=== PATIENT | female | born 1995 | race Caucasian/White ===

== ENCOUNTER 2017-06-17 00:05 | Inpatient (IN) | payer BC, OTHER ==
[2017-06-17] MEDS ORDERED: Acetaminophen 325 MG Tab PO PRN (00:19)
[2017-06-17] MEDS ORDERED: fentaNYL 100 MCG/2 ML SDV IVPUSH PRN (00:19)
[2017-06-17] MEDS ORDERED: Lactated Ringers 500 ML IV ONE (00:19)
[2017-06-17] MEDS ORDERED: Lidocaine 1% 30 ML SDV INJECT PRN (00:19)
[2017-06-17] MEDS ORDERED: Ondansetron 4 MG/2 ML SDV IV PRN (00:19)
[2017-06-17] MEDS ORDERED: Carboprost Tromethamine 250 MCG/1 ML Amp IM PRN (00:19)
[2017-06-17] MEDS ORDERED: Misoprostol 400 MCG (4 X 100 MCG TAB) RECTAL PRN (00:19)
[2017-06-17] MEDS ORDERED: Methylergonovine 0.2 MG/1 ML Amp IM PRN (00:19)
[2017-06-17] MEDS ORDERED: Sodium Chloride 0.9% 10 ML Syringe FLUSH PRN ×3 (00:19→17:13)
[2017-06-17] MEDS ORDERED: Nalbuphine 10 MG/1 ML Vial IVPUSH PRN (00:19)
[2017-06-17] MEDS ORDERED: Penicillin G Potassium 5 MILLUNITS in Sodium Chloride 0.9% 100 ML IV ONE ×2 (00:19→01:00)
[2017-06-17] MEDS ORDERED: Misoprostol 25 MCG (1/4 of 100 MCG) Tab VAG PRN (00:23)
[2017-06-17] MEDS ORDERED: Penicillin G Potassium 3 MILLUNITS in Sodium Chloride 0.9% 100 ML IV SCH (05:00)
[2017-06-17] MEDS: Lactated Ringers 1,000 ML IV SCH ×3 (06:30→12:45)
[2017-06-17] MEDS ORDERED: fentaNYL 100 MCG/2 ML SDV ITHECAL ONE ×2 (08:00→13:00)
[2017-06-17] MEDS ORDERED: fentaNYL 100 MCG/2 ML SDV ONE ×2 (08:27→12:50)
--- NOTE | 2017-06-17 09:42 | PCM.LDHP ---
L&D History of Present Illness - General Date of Service: 06/17/17 Admit Problem/Dx: Patient Status Order with Admit Dx/Problem 06/17/17 00:19 Patient Status [ADT] Routine Admission Diagnosis/Problem Admission Diagnosis/Problem - History of Present Illness Introduction:: 22-year-old at 41 weeks 0 days gestation presents for induction of labor. She has been feeling well. Baby has been active. No vaginal bleeding or leaking of fluid. No headaches or vision changes. She has been having some intermittent [place] contractions but nothing regular. No comp medications with . 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 Endocrine/Metabolic History: Reports: Obesity/BMI 30+ Hematologic History: Reports: Anemia - Past Surgical History HEENT Surgical History: Reports: Adenoidectomy, Tonsillectomy Social & Family History - Family History Family Medical History: Noncontributory - Tobacco Use Smoking Status *Q: Never Smoker Second Hand Smoke Exposure: No - Caffeine Use Caffeine Use: Reports: None - Recreational Drug Use Recreational Drug Use: No - Living Situation & Occupation Living situation: Reports: with Significant Other Occupation: Employed H&P Review of Systems - Review of Systems: Review Of Systems: See Below General: Reports: No Symptoms HEENT: Reports: No Symptoms Pulmonary: Reports: No Symptoms Cardiovascular: Reports: No Symptoms Gastrointestinal: Reports: No Symptoms Genitourinary: Reports: No Symptoms Musculoskeletal: Reports: No Symptoms L&D Exam - Exam Exam: See Below - Vital Signs Vital Signs: Last Vital Signs Temp 35.8 C 06/17/17 07:00 Pulse 96 06/17/17 07:00 Resp 20 06/17/17 07:00 BP 117/65 06/17/17 07:00 Pulse Ox 98 06/17/17 07:00 Weight: 88.451 kg - OB Specific Contraction Duration (sec): 40-100 Contraction Frequency (min): 2-5 Contraction Intensity: Moderate to Strong - Romero Score Romero Score Cervix Position: Posterior Romero Score Consistency: Medium Romero Score Dilation: 1-2 cm Romero Score Infant's Station: -3 - Exam General: Alert, Oriented HEENT: Mucosa Moist & Joseph, Posterior Pharynx Clear Lungs: Clear to Auscultation, Normal Respiratory Effort Cardiovascular: Regular Rate, Regular Rhythm. No: Systolic Murmur, Diastolic Murmur Extremities: Pedal Edema (trace bilaterally) Skin: Warm, Dry, Intact - Patient Data Lab Results Last 24 hrs: Laboratory Results - last 24 hr 06/17/17 Range/Units 00:35 WBC 10.4 H (5.0-10.0) 10^3/uL RBC 4.21 (4.2-5.4) 10^6/uL Hgb 12.0 (12.0-16.0) g/dL Hct 35.8 L (37.0-47.0) % MCV 85.0 (80-100) fL MCH 28.5 (27.0-34.0) pg MCHC 33.5 (33.0-35.0) g/dL Plt Count 303 (150-450) 10^3/uL Result Diagrams: 06/17/17 00:35 - Problem List (1) Post-dates SNOMED Code(s): 37841110 ICD Code: O48.0 - POST-TERM Status: Acute Current Visit: Yes (2) Rh negative status during SNOMED Code(s): 429478533, 164953242 ICD Code: O09.899 - SUPERVISION OF OTHER HIGH RISK PREGNANCIES, UNSP TRIMESTER Status: Acute Current Visit: Yes Problem List Initiated/Reviewed/Updated: Yes Orders Last 24hrs: Active Orders 24 hr Category Date Time Status Patient Status [ADT] Routine ADT 06/17/17 00:19 Active Communication Order [RC] ASDIRECTED Care 06/17/17 00:19 Active Communication Order [RC] ASDIRECTED Care 06/17/17 00:23 Active Heart Tones [RC] PER UNIT ROUTINE Care 06/17/17 00:19 Active Notify Provider Vital Signs OB [RC] ASDIRECTED Care 06/17/17 00:19 Active Notify Provider [RC] PRN Care 06/17/17 00:19 Active Notify Provider [RC] PRN Care 06/17/17 00:23 Active Notify Provider [RC] PRN Care 06/17/17 00:23 Active Notify Provider [RC] STAT Care 06/17/17 00:23 Active Peripheral IV Care [RC] 08,20 Care 06/17/17 00:24 Active Pump Management, Intrathecal [RC] ASDIRECTED Care 06/17/17 00:19 Active Up ad Shreya [RC] ASDIRECTED Care 06/17/17 00:19 Active Vaginal Exam [RC] PRN Care 06/17/17 00:23 Active Vital Signs [RC] PER UNIT ROUTINE Care 06/17/17 00:19 Active Clear Liquid Diet [DIET] Diet 06/17/17 Breakfast Active Acetaminophen [Tylenol] Med 06/17/17 00:19 Active 650 mg PO Q4H PRN Carboprost Tromethamine [Hemabate DS] Med 06/17/17 00:19 Active 250 mcg IM ASDIRECTED PRN Lactated Ringers [Ringers, Lactated] 1,000 ml Med 06/17/17 00:30 Active IV ASDIRECTED Lidocaine 1% [Xylocaine-MPF 1%] Med 06/17/17 00:19 Active 10 ml INJECT ASDIRECTED PRN Methylergonovine [Methergine] Med 06/17/17 00:19 Active 0.2 mg IM ASDIRECTED PRN Misoprostol [Cytotec] Med 06/17/17 00:23 Active 25 mcg VAG Q4H PRN Misoprostol [Cytotec] Med 06/17/17 00:19 Active 800 mcg RECTAL ASDIRECTED PRN Nalbuphine [Nubain] Med 06/17/17 00:19 Active 10 mg IVPUSH Q3H PRN Ondansetron [Zofran] Med 06/17/17 00:19 Active 4 mg IV Q4H PRN Oxytocin/Normal Saline [Pitocin in NS 30 UNIT/500 ML] Med 06/17/17 00:30 Active 30 unit in 500 ml IV TITRATE Sodium Chloride 0.9% [Saline Flush] Med 06/17/17 00:19 Active 10 ml FLUSH ASDIRECTED PRN Sodium Chloride 0.9% [Saline Flush] Med 06/17/17 00:23 Active 10 ml FLUSH ASDIRECTED PRN fentaNYL [Sublimaze] Med 06/17/17 00:19 Active 50 mcg IVPUSH Q1H PRN Peripheral IV Insertion Adult [OM.PC] Urgent Oth 06/17/17 00:23 Ordered Saline Lock Insert [OM.PC] Routine Oth 06/17/17 00:19 Ordered Resuscitation Status Routine Resus Stat 06/17/17 00:19 Ordered Medication Orders Acetaminophen (Tylenol) 650 mg PO Q4H PRN PRN Reason: Pain (Mild 1-3) and fever Carboprost Tromethamine (Hemabate Ds) 250 mcg IM ASDIRECTED PRN PRN Reason: HEMORRHAGE Fentanyl (Sublimaze) 50 mcg IVPUSH Q1H PRN PRN Reason: Pain (moderate 4-6) Last Admin: 06/17/17 07:03 Dose: 50 mcg Lactated Ringer's (Ringers, Lactated) 1,000 mls @ 125 mls/hr IV ASDIRECTED GEORGE Last Admin: 06/17/17 06:30 Dose: 125 mls/hr Oxytocin/Sodium Chloride (Pitocin In Ns 30 Unit/500 Ml) 30 unit in 500 mls @ 2 mls/hr IV TITRATE GEORGE; 2 MUNITS/MIN PRN Reason: Protocol Lidocaine HCl (Xylocaine-Mpf 1%) 10 ml INJECT ASDIRECTED PRN PRN Reason: Perineal Repair Methylergonovine Maleate (Methergine) 0.2 mg IM ASDIRECTED PRN PRN Reason: Hemorrhage Misoprostol (Cytotec) 800 mcg RECTAL ASDIRECTED PRN PRN Reason: Hemorrhage Misoprostol (Cytotec) 25 mcg VAG Q4H PRN PRN Reason: cervical ripening Stop: 06/18/17 04:24 Last Admin: 06/17/17 01:03 Dose: 25 mcg Nalbuphine HCl (Nubain) 10 mg IVPUSH Q3H PRN PRN Reason: Pain (moderate 4-6) Ondansetron HCl (Zofran) 4 mg IV Q4H PRN PRN Reason: Nausea/Vomiting Sodium Chloride (Saline Flush) 10 ml FLUSH ASDIRECTED PRN PRN Reason: Keep Vein Open Sodium Chloride (Saline Flush) 10 ml FLUSH ASDIRECTED PRN PRN Reason: Keep Vein Open Assessment/Plan Comment:: patient admitted around midnight. Cytotec placed about an hour later. At 5 AM, patient was reassessed. She was mike every 2-3 minutes so another dose of Cytotec was not placed. Patient was evaluated around 8 AM and was found to be 5 cm with bulging bag. However, head was ballotable so AROM was not performed at this time. Patient does desire an intrathecal. 1. Continue routine intrapartum cares. 2. Patient may receive intrathecal when desired. 3. AROM when able. 4. Anticipate vaginal delivery. Expectant management. david Tran
[2017-06-17] MEDS: Oxytocin/Normal Saline 30 UNIT/500 ML BAG IV SCH ×2 (09:47→17:38)
--- NOTE | 2017-06-17 17:12 | PCM.DEL ---
L & D Note - General Info Date of Service: 06/17/17 Mother's Due Date: 06/10/17 - Delivery Note Labor: Augmented by ARM, Augmented by Oxytocin Cervical Ripening Method: Misoprostil Delivery Outcome: Livebirth Infant Delivery Method: Spontaneous Vaginal Delivery Presentation: Right Occiput Anterior (GILBERTO) Nuchal Cord: None Anesthesia Type: Local, Intrathecal Anesthetic: Lidocaine (Xylocaine) 0.5% Plain Local Anesthetic Volume: 4cc Amniotic Fluid Description: Meconium Stained (initially clear, meconium noted about an hour prior to delivery) Episiotomy Type: None Laceration: 2nd Degree, Vaginal Suture type: Vicryl Suture size: 3-0 Placenta: Intact (small amount of membranes removed after placenta), Spontaneous Cord: 3 Vessels Estimated Blood Loss: 275 Resuscitation Needed: Yes Ola: Bulb Syringe, Stimulated, Warmed, [place] Used Provider: Mindi Benoit Score 1 min: 7 Score 5 min: 8 Delivery Comments (Free Text/Narrative):: 22-year-old now presented to labor and delivery for induction of labor due to postdates. She received 1 dose of Cytotec for cervical ripening. After that, labor was spontaneous. Pitocin was started around 9 AM to augment labor. AROM was performed around 12:30 PM. Patient received intrathecal 2 for pain relief.patient reached complete dilation around 1500. She pushed for approximately 1 hour and 40 minutes then delivered a viable female with Apgars of 7 and 8 at one and 5 minutes respectively. Measurements were pending at the time of this dictation. Placenta delivered spontaneously a short time later. A small piece of membranes was noted after delivery of placenta this was gently teased out using sterile gauze. The piece of membrane approximately 6 inches long was removed. Bleeding was more brisk than desired so Pitocin was started at a bolus rate. The lower uterine segment was explored and several medium sized clots were removed. After that, the uterus became firm. Bleeding was noted to be appropriate. A three-vessel cord was noted. A right vaginal tear was repaired using 3-0 Vicryl. The patient tolerated the procedure well, and there were no immediate complications. Mindi Benoit MD Induction Criteria - Romero Score Romero Score Dilation: 1-2 cm Romero Score Effacement: 60-70% Romero Score Infant's Station: -2 Romero Score Consistency: Soft Romero Score Cervix Position: Posterior Romero Score Total: 6 Romero Score Presenting Part: Reports: Cephalic - Induction Gestational Age >/= 39 wks: Yes Medical Indication: post dates Estimated Pelvis: Reports: Adequate Reassuring Monitoring Strip: Yes Absence of Tachy Systole: Yes - Augmentation Estimated Pelvis: Reports: Adequate Weight Estimated:: Reports: AGA Reassuring monitoring strip: Yes Absence of tachy systole: Yes - Patient Data Vitals - most recent: Last Vital Signs Temp 36.9 C 06/17/17 13:35 Pulse 77 06/17/17 14:15 Resp 18 06/17/17 14:15 BP 116/56 L 06/17/17 14:15 Pulse Ox 97 06/17/17 14:15 Weight - most recent: 88.451 kg Lab Results last 24 hrs: Laboratory Results - last 24 hr 06/17/17 Range/Units 00:35 WBC 10.4 H (5.0-10.0) 10^3/uL RBC 4.21 (4.2-5.4) 10^6/uL Hgb 12.0 (12.0-16.0) g/dL Hct 35.8 L (37.0-47.0) % MCV 85.0 (80-100) fL MCH 28.5 (27.0-34.0) pg MCHC 33.5 (33.0-35.0) g/dL Plt Count 303 (150-450) 10^3/uL Med Orders - Current: Current Medications Acetaminophen (Tylenol) 650 mg PO Q4H PRN PRN Reason: Pain (Mild 1-3) and fever Carboprost Tromethamine (Hemabate Ds) 250 mcg IM ASDIRECTED PRN PRN Reason: HEMORRHAGE Fentanyl (Sublimaze) 50 mcg IVPUSH Q1H PRN PRN Reason: Pain (moderate 4-6) Last Admin: 06/17/17 07:03 Dose: 50 mcg Lactated Ringer's (Ringers, Lactated) 1,000 mls @ 125 mls/hr IV ASDIRECTED GEORGE Last Admin: 06/17/17 12:45 Dose: 125 mls/hr Oxytocin/Sodium Chloride (Pitocin In Ns 30 Unit/500 Ml) 30 unit in 500 mls @ 2 mls/hr IV TITRATE GEORGE; 2 MUNITS/MIN PRN Reason: Protocol Last Titration: 06/17/17 14:28 Dose: 14 munits/min, 14 mls/hr Lidocaine HCl (Xylocaine-Mpf 1%) 10 ml INJECT ASDIRECTED PRN PRN Reason: Perineal Repair Last Admin: 06/17/17 17:00 Dose: 10 ml Methylergonovine Maleate (Methergine) 0.2 mg IM ASDIRECTED PRN PRN Reason: Hemorrhage Misoprostol (Cytotec) 800 mcg RECTAL ASDIRECTED PRN PRN Reason: Hemorrhage Misoprostol (Cytotec) 25 mcg VAG Q4H PRN PRN Reason: cervical ripening Stop: 06/18/17 04:24 Last Admin: 06/17/17 01:03 Dose: 25 mcg Nalbuphine HCl (Nubain) 10 mg IVPUSH Q3H PRN PRN Reason: Pain (moderate 4-6) Ondansetron HCl (Zofran) 4 mg IV Q4H PRN PRN Reason: Nausea/Vomiting Last Admin: 06/17/17 12:42 Dose: 4 mg Sodium Chloride (Saline Flush) 10 ml FLUSH ASDIRECTED PRN PRN Reason: Keep Vein Open Sodium Chloride (Saline Flush) 10 ml FLUSH ASDIRECTED PRN PRN Reason: Keep Vein Open Discontinued Medications Fentanyl (Sublimaze) Confirm Administered Dose 100 mcg .ROUTE .STK-MED ONE Stop: 06/17/17 08:28 Fentanyl (Sublimaze) Confirm Administered Dose 100 mcg .ROUTE .STK-MED ONE Stop: 06/17/17 12:51 Lactated Ringer's (Ringers, Lactated) 500 mls @ 999 mls/hr IV .BOLUS ONE Stop: 06/17/17 00:49 Penicillin G Potassium 5 (millunits/ Sodium Chloride) 100 mls @ 200 mls/hr IV ONETIME ONE Stop: 06/17/17 00:48 Last Admin: 06/17/17 02:33 Dose: Not Given Penicillin G Potassium 3 (millunits/ Sodium Chloride) 100 mls @ 200 mls/hr IV Q4H GEORGE Penicillin G Potassium 5 (millunits/ Sodium Chloride) 100 mls @ 200 mls/hr IV ONETIME ONE Stop: 06/17/17 01:29 Last Admin: 06/17/17 02:33 Dose: Not Given Sufentanil Citrate (Sufenta) Confirm Administered Dose 50 mcg .ROUTE .STK-MED ONE Stop: 06/17/17 08:29 Sufentanil Citrate (Sufenta) Confirm Administered Dose 50 mcg .ROUTE .STK-MED ONE Stop: 06/17/17 12:51 - Problem List & Annotations (1) Post-dates SNOMED Code(s): 22876023 Code(s): O48.0 - POST-TERM Status: Acute Current Visit: Yes (2) Rh negative status during SNOMED Code(s): 426267119, 154956294 Code(s): O09.899 - SUPERVISION OF OTHER HIGH RISK PREGNANCIES, UNSP TRIMESTER Status: Acute Current Visit: Yes (3) (normal spontaneous vaginal delivery) SNOMED Code(s): 76827099 Code(s): O80 - ENCOUNTER FOR FULL-TERM UNCOMPLICATED DELIVERY Status: Acute Current Visit: Yes (4) Obstetric vaginal laceration, delivered, current hospitalization SNOMED Code(s): 734573833 Code(s): O71.4 - OBSTETRIC HIGH VAGINAL LACERATION ALONE Status: Acute Current Visit: Yes - Problem List Review Problem List Initiated/Reviewed/Updated: Yes - My Orders Last 24 Hours: My Active Orders 06/17/17 00:19 Patient Status [ADT] Routine Communication Order [RC] ASDIRECTED Heart Tones [RC] PER UNIT ROUTINE Notify Provider Vital Signs OB [RC] ASDIRECTED Notify Provider [RC] PRN Pump Management, Intrathecal [RC] ASDIRECTED Up ad Shreya [RC] ASDIRECTED Vital Signs [RC] PER UNIT ROUTINE Acetaminophen [Tylenol] 650 mg PO Q4H PRN Carboprost Tromethamine [Hemabate DS] 250 mcg IM ASDIRECTED PRN Lidocaine 1% [Xylocaine-MPF 1%] 10 ml INJECT ASDIRECTED PRN Methylergonovine [Methergine] 0.2 mg IM ASDIRECTED PRN Misoprostol [Cytotec] 800 mcg RECTAL ASDIRECTED PRN Nalbuphine [Nubain] 10 mg IVPUSH Q3H PRN Ondansetron [Zofran] 4 mg IV Q4H PRN Sodium Chloride 0.9% [Saline Flush] 10 ml FLUSH ASDIRECTED PRN fentaNYL [Sublimaze] 50 mcg IVPUSH Q1H PRN Saline Lock Insert [OM.PC] Routine Resuscitation Status Routine 06/17/17 00:23 Communication Order [RC] ASDIRECTED Notify Provider [RC] PRN Notify Provider [RC] PRN Notify Provider [RC] STAT Vaginal Exam [RC] PRN Misoprostol [Cytotec] 25 mcg VAG Q4H PRN Sodium Chloride 0.9% [Saline Flush] 10 ml FLUSH ASDIRECTED PRN Peripheral IV Insertion Adult [OM.PC] Urgent 06/17/17 00:24 Peripheral IV Care [RC] 08,06/17/17 00:30 Lactated Ringers [Ringers, Lactated] 1,000 ml IV ASDIRECTED Oxytocin/Normal Saline [Pitocin in NS 30 UNIT/500 ML] 30 unit in 500 ml IV TITRATE 06/17/17 Breakfast Clear Liquid Diet [DIET] - Assessment Assessment:: 22-year-old now status post normal spontaneous vaginal delivery at 41w0d - Plan Plan:: 1. Initiate routine cares. 2.Will give second dose of Pitocin to facilitate uterine tone 3. plans to breast-feed. 4. Anticipate discharge 06/19/17. Mindi Benoit MD
[2017-06-17] MEDS ORDERED: Oxytocin 10 Units/1 ML SDV IM PRN (17:13)
[2017-06-17] MEDS ORDERED: Methylergonovine 0.2 MG Tab PO PRN (17:13)
[2017-06-17] MEDS ORDERED: Benzocaine/Menthol 20%-0.5% Spray 56 GM Canister TOP PRN (17:13)
[2017-06-17] MEDS: Ibuprofen 800 MG Tab PO PRN (19:14)
[2017-06-17] MEDS: Docusate Sodium 100 MG Cap PO PRN (22:09)
[2017-06-18] MEDS: Ibuprofen 800 MG Tab PO PRN ×3 (04:41→21:01)
[2017-06-18] MEDS: Docusate Sodium 100 MG Cap PO PRN ×2 (08:35→21:00)
[2017-06-18] MEDS: Prenatal Multivitamin with Calcium/Folic Acid/Iron Tab PO SCH (08:35)
[2017-06-18] MEDS: Simethicone 80 MG Tab.Chew PO PRN (08:36)
--- NOTE | 2017-06-18 13:05 | PCM.PNPP ---
- General Info Date of Service: 06/18/17 Subjective Update: 22-year-old now day #1 status post normal spontaneous vaginal delivery at 41 weeks gestation. Patient is doing well. She notes her vaginal bleeding has started to decrease. Pain is well-controlled. She is tolerating a general diet. She is voiding and has passed gas. She has not had a bowel movement. She is having some difficulty with breast-feeding but will be meeting with today. No fevers or chills. No dizziness or lightheaded. No concerns per patient or per nursing. Functional Status: Reports: Pain Controlled, Tolerating Diet, Ambulating, Urinating. Denies: New Symptoms - Review of Systems General: Reports: No Symptoms HEENT: Reports: No Symptoms Pulmonary: Reports: No Symptoms Cardiovascular: Reports: No Symptoms Gastrointestinal: Reports: No Symptoms Genitourinary: Reports: No Symptoms Musculoskeletal: Reports: No Symptoms Skin: Reports: No Symptoms Neurological: Reports: No Symptoms Psychiatric: Reports: No Symptoms - General Info Date of Service: 06/18/17 - Patient Data Vital Signs - most recent: Last Vital Signs Temp 36.4 C 06/18/17 08:00 Pulse 82 06/18/17 08:00 Resp 18 06/18/17 08:00 BP 99/54 L 06/18/17 08:00 Pulse Ox 100 06/18/17 08:00 Weight - most recent: 88.451 kg I&O - last 24 hours: Intake & Output 06/17/17 06/18/17 06/18/17 22:59 06:59 14:59 Intake Total 2500 Balance 2500 Med Orders - Current: Current Medications Acetaminophen (Tylenol) 650 mg PO Q4H PRN PRN Reason: Pain (Mild 1-3) and fever Benzocaine/Menthol (Dermoplast Pain Relief [place]) 0 gm TOP Q4H PRN PRN Reason: Perineal comfort measures Last Admin: 06/17/17 19:15 Dose: 1 spray Carboprost Tromethamine (Hemabate Ds) 250 mcg IM ASDIRECTED PRN PRN Reason: HEMORRHAGE Docusate Sodium (Colace) 100 mg PO BID PRN PRN Reason: Constipation Last Admin: 06/18/17 08:35 Dose: 100 mg Oxytocin/Sodium Chloride (Pitocin In Ns 30 Unit/500 Ml) 30 unit in 500 mls @ 2 mls/hr IV TITRATE GEORGE; 2 MUNITS/MIN PRN Reason: Protocol Last Titration: 06/17/17 19:30 Dose: 50 munits/min, 50 mls/hr Ibuprofen (Motrin) 800 mg PO Q8H PRN PRN Reason: Mild Pain or Fever Last Admin: 06/18/17 12:37 Dose: 800 mg Methylergonovine Maleate (Methergine) 0.2 mg IM ASDIRECTED PRN PRN Reason: Hemorrhage Methylergonovine Maleate (Methergine) 0.2 mg PO ONETIME PRN PRN Reason: excessive vaginal bleeding Misoprostol (Cytotec) 800 mcg RECTAL ASDIRECTED PRN PRN Reason: Hemorrhage Ondansetron HCl (Zofran) 4 mg IV Q4H PRN PRN Reason: Nausea/Vomiting Last Admin: 06/17/17 12:42 Dose: 4 mg Oxytocin (Pitocin) 10 unit IM ONETIME PRN PRN Reason: Bleeding Prenat Multivit/Allen/Iron/Folic Ac ( Plus Iron) 1 each PO DAILY GEORGE Last Admin: 06/18/17 08:35 Dose: 1 each Simethicone (Simethicone) 80 mg PO Q4H PRN PRN Reason: Gas Last Admin: 06/18/17 08:36 Dose: 80 mg Sodium Chloride (Saline Flush) 10 ml FLUSH ASDIRECTED PRN PRN Reason: Keep Vein Open Sodium Chloride (Saline Flush) 10 ml FLUSH ASDIRECTED PRN PRN Reason: Keep Vein Open Sodium Chloride (Saline Flush) 10 ml FLUSH ASDIRECTED PRN PRN Reason: Keep Vein Open Discontinued Medications Fentanyl (Sublimaze) 50 mcg IVPUSH Q1H PRN PRN Reason: Pain (moderate 4-6) Last Admin: 06/17/17 07:03 Dose: 50 mcg Fentanyl (Sublimaze) Confirm Administered Dose 100 mcg .ROUTE .STK-MED ONE Stop: 06/17/17 08:28 Last Admin: 06/17/17 18:49 Dose: Not Given Fentanyl (Sublimaze) Confirm Administered Dose 100 mcg .ROUTE .STK-MED ONE Stop: 06/17/17 12:51 Last Admin: 06/17/17 18:49 Dose: Not Given Fentanyl (Sublimaze) 25 mcg ITHECAL .STK-MED ONE Stop: 06/17/17 08:01 Fentanyl (Sublimaze) 25 mcg ITHECAL .STK-MED ONE Stop: 06/17/17 13:01 Lactated Ringer's (Ringers, Lactated) 500 mls @ 999 mls/hr IV .BOLUS ONE Stop: 06/17/17 00:49 Last Admin: 06/17/17 22:57 Dose: Not Given Lactated Ringer's (Ringers, Lactated) 1,000 mls @ 125 mls/hr IV ASDIRECTED GEORGE Last Admin: 06/17/17 12:45 Dose: 125 mls/hr Penicillin G Potassium 5 (millunits/ Sodium Chloride) 100 mls @ 200 mls/hr IV ONETIME ONE Stop: 06/17/17 00:48 Last Admin: 06/17/17 02:33 Dose: Not Given Penicillin G Potassium 3 (millunits/ Sodium Chloride) 100 mls @ 200 mls/hr IV Q4H GEORGE Penicillin G Potassium 5 (millunits/ Sodium Chloride) 100 mls @ 200 mls/hr IV ONETIME ONE Stop: 06/17/17 01:29 Last Admin: 06/17/17 02:33 Dose: Not Given Lidocaine HCl (Xylocaine-Mpf 1%) 10 ml INJECT ASDIRECTED PRN PRN Reason: Perineal Repair Last Admin: 06/17/17 17:00 Dose: 10 ml Misoprostol (Cytotec) 25 mcg VAG Q4H PRN PRN Reason: cervical ripening Stop: 06/18/17 04:24 Last Admin: 06/17/17 01:03 Dose: 25 mcg Nalbuphine HCl (Nubain) 10 mg IVPUSH Q3H PRN PRN Reason: Pain (moderate 4-6) Sufentanil Citrate (Sufenta) Confirm Administered Dose 50 mcg .ROUTE .STK-MED ONE Stop: 06/17/17 08:29 Last Admin: 06/17/17 18:49 Dose: Not Given Sufentanil Citrate (Sufenta) Confirm Administered Dose 50 mcg .ROUTE .STK-MED ONE Stop: 06/17/17 12:51 Last Admin: 06/17/17 18:49 Dose: Not Given Sufentanil Citrate (Sufenta) 10 mcg ITHECAL .STK-MED ONE Stop: 06/17/17 08:01 Sufentanil Citrate (Sufenta) 10 mcg ITHECAL .STK-MED ONE Stop: 06/17/17 13:01 - Infant Interaction Infant Disposition, : [place] in Room with Family Infant Feeding: Attempted ; Nursed Fair/Poor Support Person: - Recovery Exam Fundal Tone: Firm Fundal Level: 1 Fingerbreadths Below Umbilicus Fundal Placement: Midline Lochia Amount: Small Lochia Color: Rubra/Red Perineum Description: Intact, Minimal Bruising/Swelling Other Perinuem Description: SF continuing to repair Episiotomy/Laceration: Approximated Bladder Status: Voiding Urinary Elimination: Voided - Exam General: alert, oriented Lungs: Clear to Auscultation, Normal Respiratory Effort Cardiovascular: Regular Rate, Regular Rhythm, No Murmurs GI/Abdominal Exam: Soft, Non-Tender Extremities: Pedal Edema (Trace bilaterally) Skin: warm, dry, intact Psy/Mental Status: alert, normal affect - Problem List & Annotations (1) Post-dates SNOMED Code(s): 45464339 Code(s): O48.0 - POST-TERM Status: Acute Current Visit: Yes (2) Rh negative status during SNOMED Code(s): 615303482, 692731220 Code(s): O09.899 - SUPERVISION OF OTHER HIGH RISK PREGNANCIES, UNSP TRIMESTER Status: Acute Current Visit: Yes (3) (normal spontaneous vaginal delivery) SNOMED Code(s): 23036129 Code(s): O80 - ENCOUNTER FOR FULL-TERM UNCOMPLICATED DELIVERY Status: Acute Current Visit: Yes (4) Obstetric vaginal laceration, delivered, current hospitalization SNOMED Code(s): 313912478 Code(s): O71.4 - OBSTETRIC HIGH VAGINAL LACERATION ALONE Status: Acute Current Visit: Yes - Problem List Review Problem List Initiated/Reviewed/Updated: Yes - My Orders Last 24 Hours: My Active Orders 06/17/17 17:13 Vital Signs [RC] 08,20 Benzocaine/Menthol [Dermoplast Pain Relief [place]] See Dose Instructions TOP Q4H PRN Docusate Sodium [Colace] 100 mg PO BID PRN Ibuprofen [Motrin] 800 mg PO Q8H PRN Methylergonovine [Methergine] 0.2 mg PO ONETIME PRN Oxytocin [Pitocin] 10 unit IM ONETIME PRN Simethicone 80 mg PO Q4H PRN Sodium Chloride 0.9% [Saline Flush] 10 ml FLUSH ASDIRECTED PRN Assess Lochia [WOMSER] Per Unit Routine Assess Uterine Involution [WOMSER] Per Unit Routine Breast Pump [WOMSER] Per Unit Routine Ice Therapy [OM.PC] Per Unit Routine Perineal Care [OM.PC] Per Unit Routine Saline Lock Insert [OM.PC] Urgent Sitz Bath [OM.PC] Per Unit Routine 06/17/17 Dinner Regular Diet [DIET] 06/18/17 09:00 Vit with Ca/FA/Iron [ Plus Iron] 1 each PO DAILY - Assessment Assessment:: 22-year-old now day #1 status post normal spontaneous vaginal delivery at 41w0d - Plan Plan:: 1. Continue routine cares. 2.patient will need RhoGAM prior to discharge 3. plans to breast-feed. ill meet with today. 4. Anticipate discharge 06/19/17. Dr. Hong will see the patient and discharge home tomorrow in my absence. Patient will see me in 6 weeks for routine visit or sooner as needed. Mindi Benoit MD
[2017-06-19] MEDS: Ibuprofen 800 MG Tab PO PRN (05:52)
[2017-06-19] MEDS: Prenatal Multivitamin with Calcium/Folic Acid/Iron Tab PO SCH (09:08)
[2017-06-19] MEDS: Docusate Sodium 100 MG Cap PO PRN (09:09)
[2017-06-19] MEDS: Simethicone 80 MG Tab.Chew PO PRN (09:10)
[2017-06-19 09:52] VITALS: BP 120/56
--- NOTE | 2017-06-19 23:29 | DISCH ---
DATE: 06/19/2017 The patient was seen on 06/19/2017 at [facility]. SUBJECTIVE: The patient is day #2 from a vaginal delivery. Mom and baby are both doing well. Lochia is normal. OBJECTIVE: Vital Signs: The patient is afebrile. Heart rate 82 to 93, blood pressure 99 to 120 systolic over 54 to 56 diastolic, respiratory rate 14 to 18, O2 sat 99% to 100%. Abdomen: The patient's fundus is firm below the umbilicus. Extremities: No tenderness. No edema. LABORATORY DATA: The patient's pre-delivery hemoglobin was 12.0. She had no hemorrhage. The patient's blood type is A negative. Baby is also Rh negative. Therefore, she does not need RhoGAM, and she is rubella immune. ASSESSMENT AND PLAN: day #2, status post vaginal delivery. This was a post-dates induction. Mom and baby are both doing well. We will discharge her to home, and she will follow up in 6 weeks for her visit. [facility] /[id number]
== END 2017-06-19 12:55 | disposition home or self-care (01) | DRG 560 ==
LOC: DL.OBCHECK 00:05 → DL.OB 00:06 → OBSVTOIN 16:39 → DL.OB 16:39
PROVIDERS: ADMIT Family Medicine; ATTEND Family Medicine
PROC: 10E0XZZ Delivery of Products of Conception, External Approach (ICD-10-PCS; principal; 2017-06-17)
PROC: 10907ZC Drainage of Amniotic Fluid, Therapeutic from Products of Conception, Via Natural or Artificial Opening (ICD-10-PCS; 2017-06-17)
PROC: 00HU33Z Insertion of Infusion Device into Spinal Canal, Percutaneous Approach (ICD-10-PCS; 2017-06-17)
PROC: 3E0R3CZ (ICD-10-PCS; 2017-06-17)
PROC: 0KQM0ZZ Repair Perineum Muscle, Open Approach (ICD-10-PCS; 2017-06-17)
DX: O48.0 Post-term pregnancy (principal); O77.0 Labor and delivery complicated by meconium in amniotic fluid; O70.1 Second degree perineal laceration during delivery; O99.02 Anemia complicating childbirth; O99.214 Obesity complicating childbirth; D64.9 Anemia, unspecified; E66.9 Obesity, unspecified; Z68.35 Body mass index [BMI] 35.0-35.9, adult; Z3A.41 41 weeks gestation of pregnancy; Z37.0 Single live birth
CPT/HCPCS: 36415; 85027; A9270-GY; J2405; J2590; J3010; J7120

== ENCOUNTER 2021-09-18 03:39 | Inpatient (IN) | payer BC ==
[2021-09-18] MEDS ORDERED: Carboprost Tromethamine 250 MCG/1 ML Amp IM PRN (04:50)
[2021-09-18] MEDS ORDERED: Misoprostol 400 MCG (4 X 100 MCG TAB) RECTAL PRN (04:50)
[2021-09-18] MEDS ORDERED: Acetaminophen 325 MG Tab PO PRN (04:50)
[2021-09-18] MEDS ORDERED: Lactated Ringers 1,000 ML IV ONE (04:50)
[2021-09-18] MEDS ORDERED: Tranexamic Acid 1,000 MG in Sodium Chloride 0.9% 100 ML IV PRN (04:50)
[2021-09-18] MEDS ORDERED: Ondansetron 4 MG/2 ML SDV IVPUSH PRN (04:50)
[2021-09-18] MEDS ORDERED: Methylergonovine 0.2 MG/1 ML Amp IM PRN (04:50)
[2021-09-18] MEDS ORDERED: Sodium Chloride 0.9% 10 ML Syringe FLUSH PRN (04:50)
[2021-09-18] MEDS ORDERED: Lidocaine 1% 30 ML SDV INJECT PRN (04:50)
--- NOTE | 2021-09-18 04:59 | PCM.LDHP ---
L&D History of Present Illness - General Date of Service: 09/18/21 Admit Problem/Dx: Patient Status Order with Admit Dx/Problem 09/18/21 04:50 Patient Status [ADT] Routine Admission Diagnosis/Problem Admission Diagnosis/Problem care Source of Information: Patient History Limitations: Reports: No Limitations - History of Present Illness Introduction:: at 39w6d presents to L&D for increased contractions that started at 2300. Patient has been doing well with them. No vaginal bleeding or leaking of fluid. Baby has been active. No vaginal bleeding or leaking of fluid. No new headache or vision changes. has been uncomplicated. 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 Endocrine/Metabolic History: Reports: Obesity/BMI 30+ Hematologic History: Reports: Anemia - Past Surgical History HEENT Surgical History: Reports: Adenoidectomy, Tonsillectomy Social & Family History - Family History Family Medical History: No Pertinent Family History - Caffeine Use Caffeine Use: Reports: None - Living Situation & Occupation Living situation: Reports: with Significant Other Occupation: Employed H&P Review of Systems - Review of Systems: Review Of Systems: See Below General: Reports: No Symptoms HEENT: Reports: No Symptoms Pulmonary: Reports: No Symptoms Cardiovascular: Reports: No Symptoms Gastrointestinal: Reports: No Symptoms Skin: Reports: No Symptoms Psychiatric: Reports: No Symptoms Neurological: Reports: No Symptoms L&D Exam - Exam Exam: See Below - OB Specific Contraction Intensity: Moderate to Strong Movement: Active Heart Tones: Present Heart Tones per Min: 135 Heart Rate (FHR) Variability: Moderate (6-25 bpm) Presentation: Vertex - Romero Score Romero Score Cervix Position: Anterior Romero Score Consistency: Soft Romero Score Effacement: >80% Romero Score Dilation: > 5 cm Romero Score Infant's Station: -1 ,0 Romero Score Total: 12 - Exam General: Alert Lungs: Clear to Auscultation, Normal Respiratory Effort Cardiovascular: Regular Rate, Regular Rhythm. No: Systolic Murmur, Diastolic Murmur Extremities: Pedal Edema (Trace bilaterally) Skin: Warm, Dry, Intact - Problem List (1) care in third trimester SNOMED Code(s): 376418468, 41814289, 56574303, 539508000, 271437633 ICD Code: Z34.93 - ENCNTR FOR SUPRVSN OF NORMAL PREG, UNSP, THIRD TRIMESTER Status: Acute Current Visit: Yes (2) Anemia affecting in third trimester SNOMED Code(s): 06885314, 59079780 ICD Code: O99.013 - ANEMIA COMPLICATING , THIRD TRIMESTER Status: Acute Current Visit: Yes (3) Rh negative status during SNOMED Code(s): 835139628 ICD Code: O09.899 - SUPERVISION OF OTHER HIGH RISK PREGNANCIES, UNSP TRIMESTER Status: Acute Current Visit: No Problem List Initiated/Reviewed/Updated: Yes Orders Last 24hrs: Active Orders 24 hr Category Date Time Status Patient Status [ADT] Routine ADT 09/18/21 04:50 Ordered Communication Order [RC] ASDIRECTED Care 09/18/21 04:50 Ordered Heart Tones [RC] PER UNIT ROUTINE Care 09/18/21 04:50 Ordered Nitrous Oxide Delivery [RC] ASDIRECTED Care 09/18/21 04:52 Ordered Notify Provider Vital Signs OB [RC] ASDIRECTED Care 09/18/21 04:50 Ordered Notify Provider [RC] PRN Care 09/18/21 04:50 Ordered OB Discontinue Nitrous Oxide [RC] ASDIRECTED Care 09/18/21 04:52 Ordered Pump Management, Intrathecal [RC] ASDIRECTED Care 09/18/21 04:50 Ordered Up ad Shreya [RC] ASDIRECTED Care 09/18/21 04:50 Ordered Vital Signs [RC] PER UNIT ROUTINE Care 09/18/21 04:50 Ordered Regular Diet [DIET] Diet 09/18/21 Lunch Ordered CBC W/O DIFF,HEMOGRAM [HEME] Routine Lab 09/18/21 04:44 Ordered Acetaminophen [TylenoL] Med 09/18/21 04:50 Ordered 650 mg PO Q4H PRN Carboprost Tromethamine [Hemabate DS] Med 09/18/21 04:50 Ordered 250 mcg IM ASDIRECTED PRN Lactated Ringers @ 125 MLS/HR(1000ml) Med 09/18/21 05:00 Ordered Lactated Ringers [Ringers, Lactated] 1,000 ml IV ASDIRECTED Lactated Ringers [Ringers, Lactated] 1,000 ml Med 09/18/21 04:50 Ordered IV BOLUS Lidocaine 1% [Xylocaine-MPF 1%] Med 09/18/21 04:50 Ordered 30 ml INJECT ASDIRECTED PRN Methylergonovine [Methergine] Med 09/18/21 04:50 Ordered 0.2 mg IM ASDIRECTED PRN Ondansetron [Zofran] Med 09/18/21 04:50 Ordered 4 mg IVPUSH Q4H PRN Oxytocin 30 Units in NS @ 2 MUNITS/MIN(500ml) Med 09/18/21 05:00 Ordered Oxytocin/Normal Saline [Pitocin in NS 30 UNIT/500 ML] 30 unit in 500 ml IV TITRATE Sodium Chloride 0.9% [Saline Flush] Med 09/18/21 04:50 Ordered 10 ml FLUSH ASDIRECTED PRN Tranexamic Acid [Cyklokapron] 1,000 mg Med 09/18/21 04:50 Ordered Sodium Chloride 0.9% [Normal Saline] 100 ml IV ONETIME miSOPROStoL [Cytotec] Med 09/18/21 04:50 Ordered 800 mcg RECTAL ASDIRECTED PRN Saline Lock Insert [OM.PC] Routine Oth 09/18/21 04:50 Ordered Resuscitation Status Routine Resus Stat 09/18/21 04:50 Ordered Assessment/Plan Comment:: 26-year-old at 39w6d in active labor 1. Admit to L&D and initiate routine intrapartum orders 2. Will need Rhogam prior to discharge 3. Does desire intrathecal 4. Expectant management. Anticipate Mindi Benoit MD
[2021-09-18] MEDS ORDERED: Oxytocin/Normal Saline 30 UNIT/500 ML BAG IV SCH (05:00)
[2021-09-18] MEDS ORDERED: Lactated Ringers 1,000 ML IV SCH (05:00)
[2021-09-18] MEDS ORDERED: fentaNYL 100 MCG/2 ML SDV ONE (05:19)
[2021-09-18] MEDS ORDERED: EPINEPHrine 1 MG/ML SDV ONE ×2 (05:20→06:20)
--- NOTE | 2021-09-18 06:11 | PCM.PRNOTE ---
- Free Text/Narrative Note: Requested to provide analgesia to full term patient in severe pain. Upon entering the room, patient is sitting on edge of bed complaining of severe abdominal/pelvic pain and discomfort. Procedure was discussed with patient including adverse outcomes and expectations. Pt consented to analgesia, SAB/IT. Pt placed into a proper sitting position. Landmarks for SAB/IT were identified and marked. Hands were washed and appropriate PPE was applied. Back was prepped with betadine x3. A sterile, transparent, fenestrated drape was applied. Excess betadine was removed. Using 3 mL of a 1% lidocaine solution, a skin wheel was placed at the L2/L3 interspace. A 24 ga (4 inch) Pencan spinal needle was inserted until positive for CSF. Negative for heme or paresthesias. Injected fentanyl 15 mcg, sufentanil 10 mcg, and 6 mg of a 0.75% bupivacaine solution with an epi wash. Pt was placed left lateral tilt position for approximately 20 minutes. There were zero complications or adverse outcomes. Will continue to monitor. Procedure Date & Time: 09/18/21
[2021-09-18] MEDS ORDERED: fentaNYL 100 MCG/2 ML SDV ITHECAL ONE (06:20)
[2021-09-18] MEDS ORDERED: Benzocaine/Menthol 20%-0.5% Spray 78 GM Cannister TOP PRN (14:27)
[2021-09-18] MEDS ORDERED: Simethicone 80 MG Tab.Chew PO PRN (14:27)
[2021-09-18] MEDS ORDERED: Oxytocin 10 Units/1 ML SDV IM PRN (14:27)
[2021-09-18] MEDS: Ibuprofen 800 MG Tab PO PRN ×2 (15:01→22:28)
[2021-09-18] MEDS: Docusate Sodium 100 MG Cap PO PRN (15:02)
[2021-09-18] MEDS: Acetaminophen 325 MG Tab PO PRN (17:06)
[2021-09-18] MEDS ORDERED: Witch Hazel Medicated Pads 100/Jar TOP PRN (18:39)
[2021-09-19] MEDS: Acetaminophen 325 MG Tab PO PRN (01:09)
[2021-09-19] MEDS: Ibuprofen 800 MG Tab PO PRN (07:12)
[2021-09-19] MEDS: Docusate Sodium 100 MG Cap PO PRN (08:26)
[2021-09-19 08:51] VITALS: BP 124/67; PULSE 83
[2021-09-19] MEDS ORDERED: Prenatal Multivitamin with Calcium/Folic Acid/Iron Tab PO SCH (09:00)
--- NOTE | 2021-10-02 23:32 | PCM.DEL ---
L & D Note - General Info Date of Service: 09/18/21 Mother's Due Date: 09/19/21 - Delivery Note Labor: Spontaneous, Augmented by ARM, Augmented by Oxytocin Delivery Outcome: Livebirth Delivery Method: Spontaneous Vaginal Delivery-Single Presentation: Vertex Nuchal Cord: None Anesthesia Type: Intrathecal, Nitrous Oxide Anesthetic: Lidocaine (Xylocaine) 1% Plain Local Anesthetic Volume: 5cc Amniotic Fluid Description: Clear Episiotomy Type: None Laceration: 2nd Degree, Perineal Suture size: 3-0 Placenta: Intact, Spontaneous Cord: 3 Vessels Estimated Blood Loss: 325 : Suctioned, Bulb Syringe, Stimulated, Warmed, [place] Used Provider: Mindi Benoit Delivery Comments (Free Text/Narrative):: at 39w6d presented to L&D in active labor around 0439. Was noted to be 7 cm with bulging back. Patient desired intrathecal so this was done as soon as labs were back and patient determined to be safe for anesthesia. Patient progressed to 9 cm then remained there for 2+ hours. AROM was performed for moderate clear fluid. Pitocin was started for labor augmentation. Patient progressed to complete dilation at 0921. She then started pushing with good descent of the head. She delivered a viable male weighing 9 lb 2 oz at 1008. Baby was placed on mother's chest. Umbilical cord was clamped x 2 and cut. Cord blood was collected. 3 vessel cord was noted. Placenta del ivered spontaneously about 5 minutes later. After placenta was removed, trailing members were noted at the introitus. These were grasped with a ring forceps and slowly removed using the forceps and sterile gauze. Total amount was about 3 oz of membranes. Uterine tone was noted to be firm, and bleeding was appropriate. A second degree perineal laceration was noted and repaired in the usual fashion. Uterine tone was again assessed and noted to be firm. Bleeding remained appropriate. Patient tolerated the procedure well, and there were no immediate complications. - General Info Date of Service: 09/18/21 - Patient Data Vitals - Most Recent: Last Vital Signs Temp 36.1 C 09/19/21 08:30 Pulse 83 09/19/21 08:30 Resp 14 09/19/21 08:30 BP 124/67 09/19/21 08:30 Pulse Ox 100 09/19/21 08:30 Weight - Most Recent: 95.254 kg Med Orders - Current: Current Medications Discontinued Medications Acetaminophen (Acetaminophen 325 Mg Tab) 650 mg PO Q4H PRN PRN Reason: Pain (Mild 1-3) and fever Acetaminophen (Acetaminophen 325 Mg Tab) 650 mg PO Q6H PRN PRN Reason: Pain/Fever Last Admin: 09/19/21 01:09 Dose: 650 mg Documented by: Benzocaine/Menthol (Benzocaine/Menthol 20%-0.5% [place] 78 Gm Cannister) 0 gm TOP Q4H PRN PRN Reason: Perineal comfort measures Last Admin: 09/18/21 15:02 Dose: 1 spray Documented by: Carboprost Tromethamine (Carboprost Tromethamine 250 Mcg/1 Ml Amp) 250 mcg IM ASDIRECTED PRN PRN Reason: HEMORRHAGE Docusate Sodium (Docusate Sodium 100 Mg Cap) 100 mg PO BID PRN PRN Reason: Constipation Last Admin: 09/19/21 08:26 Dose: 100 mg Documented by: Epinephrine HCl (Epinephrine 1 Mg/Ml Sdv) Confirm Administered Dose 1 mg .ROUTE .STK-MED ONE Stop: 09/18/21 05:21 Last Admin: 09/18/21 06:03 Dose: Not Given Documented by: Epinephrine HCl (Epinephrine 1 Mg/Ml Sdv) 0.1 mg .XX .STK-MED ONE Stop: 09/18/21 06:21 Fentanyl (Fentanyl 100 Mcg/2 Ml Sdv) Confirm Administered Dose 100 mcg .ROUTE .STK-MED ONE Stop: 09/18/21 05:20 Last Admin: 09/18/21 06:03 Dose: Not Given Documented by: Fentanyl (Fentanyl 100 Mcg/2 Ml Sdv) 15 mcg ITHECAL .STK-MED ONE Stop: 09/18/21 06:21 Lactated Ringer's (Ringers, Lactated) 1,000 mls @ 999 mls/hr IV BOLUS ONE Stop: 09/18/21 05:50 Last Admin: 09/18/21 04:55 Dose: 999 mls/hr Documented by: Lactated Ringer's (Ringers, Lactated) 1,000 mls @ 125 mls/hr IV ASDIRECTED GEORGE Last Admin: 09/18/21 05:34 Dose: 125 mls/hr Documented by: Tranexamic Acid 1,000 mg/ (Sodium Chloride) 110 mls @ 660 mls/hr IV ONETIME PRN PRN Reason: Bleeding Oxytocin/Sodium Chloride (Pitocin In Ns 30 Unit/500 Ml) 30 unit in 500 mls @ 2 mls/hr IV TITRATE GEORGE; Protocol Last Titration: 09/18/21 13:11 Dose: Infused Documented by: Ibuprofen (Ibuprofen 800 Mg Tab) 800 mg PO Q8H PRN PRN Reason: Cramping Last Admin: 09/19/21 07:12 Dose: 800 mg Documented by: Lidocaine HCl (Lidocaine 1% 30 Ml Sdv) 30 ml INJECT ASDIRECTED PRN PRN Reason: Perineal Repair Methylergonovine Maleate (Methylergonovine 0.2 Mg/1 Ml Amp) 0.2 mg IM ASDIRECTED PRN PRN Reason: Hemorrhage Misoprostol (Misoprostol 400 Mcg (4 X 100 Mcg Tab)) 800 mcg RECTAL ASDIRECTED PRN PRN Reason: Hemorrhage Ondansetron HCl (Ondansetron 4 Mg/2 Ml Sdv) 4 mg IVPUSH Q4H PRN PRN Reason: Nausea/Vomiting Last Admin: 09/18/21 06:25 Dose: 4 mg Documented by: Oxytocin (Oxytocin 10 Units/1 Ml Sdv) 10 unit IM ONETIME PRN PRN Reason: Bleeding Prenat Multivit/[place]/Iron/Folic Ac ( Multivitamin With Calcium/Folic Acid/Iron Tab) 1 each PO DAILY GEORGE Last Admin: 09/19/21 08:26 Dose: 1 each Documented by: Simethicone (Simethicone 80 Mg Tab.Chew) 80 mg PO Q4H PRN PRN Reason: Gas Sodium Chloride (Sodium Chloride 0.9% 10 Ml Syringe) 10 ml FLUSH ASDIRECTED PRN PRN Reason: Keep Vein Open Sufentanil Citrate (Sufentanil 50 Mcg/1 Ml Amp) Confirm Administered Dose 50 mcg .ROUTE .STK-MED ONE Stop: 09/18/21 05:21 Last Admin: 09/18/21 06:03 Dose: Not Given Documented by: Sufentanil Citrate (Sufentanil 50 Mcg/1 Ml Amp) 10 mcg ITHECAL .STK-MED ONE Stop: 09/18/21 06:21 Witch Tori (Witch Tori Medicated Pads 100/Jar) 1 pad TOP ASDIRECTED PRN PRN Reason: Pain Last Admin: 09/18/21 19:14 Dose: 1 pad Documented by: - Problem List & Annotations (1) care in third trimester SNOMED Code(s): 347922792, 09237410, 69310587, 516412337, 495148476 Code(s): Z34.93 - ENCNTR FOR SUPRVSN OF NORMAL PREG, UNSP, THIRD TRIMESTER Status: Acute (2) Anemia affecting in third trimester SNOMED Code(s): 99727490, 75124087 Code(s): O99.013 - ANEMIA COMPLICATING , THIRD TRIMESTER Status: Acute (3) Rh negative status during SNOMED Code(s): 550002660 Code(s): O09.899 - SUPERVISION OF OTHER HIGH RISK PREGNANCIES, UNSP TRIMESTER Status: Acute (4) (normal spontaneous vaginal delivery) SNOMED Code(s): 44089799, 800113094 Code(s): O80 - ENCOUNTER FOR FULL-TERM UNCOMPLICATED DELIVERY Status: Acute (5) Obstetric vaginal laceration, delivered, current hospitalization SNOMED Code(s): 155785619, 710450837 Code(s): O71.4 - OBSTETRIC HIGH VAGINAL LACERATION ALONE Status: Acute - Problem List Review Problem List Initiated/Reviewed/Updated: Yes - Assessment Assessment:: 26-year-old, now , s/p at 39w6d - Plan Plan:: 1. Initiate routine cares 2. Plans to breastfeed 3. Closely monitor vaginal bleeding 4. Repeat CBC in AM 5. Anticipate discharge 09/20/2021 Mindi Benoit MD
--- NOTE | 2021-10-02 23:51 | PCM.DCSUM1 ---
Discharge Summary - Hospital Course Free Text/Narrative:: 26-year-old s/p at 39w6d Diagnosis: Stroke: No - Discharge Data Discharge Date: 09/19/21 Discharge Disposition: Home, Self-Care 01 Condition: Good - Referral to Home Health Primary Care Physician: Aaron Benoit MD - Discharge Diagnosis/Problem(s) (1) care in third trimester SNOMED Code(s): 661678031, 96272747, 54805153, 475742139, 194268437 ICD Code: Z34.93 - ENCNTR FOR SUPRVSN OF NORMAL PREG, UNSP, THIRD TRIMESTER Status: Acute (2) Anemia affecting in third trimester SNOMED Code(s): 55394495, 42716523 ICD Code: O99.013 - ANEMIA COMPLICATING , THIRD TRIMESTER Status: Acute (3) Rh negative status during SNOMED Code(s): 811859020 ICD Code: O09.899 - SUPERVISION OF OTHER HIGH RISK PREGNANCIES, UNSP TRIMESTER Status: Acute (4) (normal spontaneous vaginal delivery) SNOMED Code(s): 94895437, 939016547 ICD Code: O80 - ENCOUNTER FOR FULL-TERM UNCOMPLICATED DELIVERY Status: Acute (5) Obstetric vaginal laceration, delivered, current hospitalization SNOMED Code(s): 177537068, 233306384 ICD Code: O71.4 - OBSTETRIC HIGH VAGINAL LACERATION ALONE Status: Acute - Patient Summary/Data Operative Procedure(s) Performed: None Complications: None Consults: None Labs Pending at D/C: None Recommended Follow-up Testing/Procedures: None Planned Operative Procedure(s) after DC: None Hospital Course: Please see subjective section - Patient Instructions Diet: Usual Diet as Tolerated, Drink 8-10+ Glasses/Day Activity: As Tolerated, No Lifting Over 20 Pounds, No Strenuous Activities, Rest and Relax Today Showering/Bathing: May Shower Notify Provider of: Fever, Increased Pain, Nausea and/or Vomiting - Discharge Plan *PRESCRIPTION DRUG MONITORING PROGRAM REVIEWED*: Not Applicable *COPY OF PRESCRIPTION DRUG MONITORING REPORT IN PATIENT MARTY: Not Applicable Home Medications: Home Meds Acetaminophen [Tylenol] 2 tab PO DAILY PRN 06/17/17 [History] Ferrous Sulfate [Iron] 1 tab PO DAILY 06/17/17 [History] Mv-Mn/Iron/FA/Herbal/Digestive [ One Tablet] 1 tab PO DAILY 06/17/17 [History] Ascorbic Acid [Vitamin C] 1,000 mg PO DAILY 09/18/21 [History] Patient Handouts: Baby Blues, Care After Vaginal Delivery Referrals: Mindi Benoit MD [Primary Care Provider] - - Discharge Summary/Plan Comment DC Time >30 min.: No Total # of Minutes for Discharge Time: 20 Discharge Summary/Plan Comment: Patient requesting 24-hour discharge. She is doing well so will discharge home today. Follow-up in clinic in 6-8 weeks or sooner as needed. Reasons to present to clinic or the ED were reviewed and all questions were addressed. - General Info Date of Service: 09/19/21 Subjective Update: PPD#1. Patient is doing well. Has been ambulating. Tolerating a general diet. Urinating and passing gas--has not had a bowel movement yet. NO fever, chills, nausea or vomiting. Minimal pain. going fairly well--tolerating nipple shield. No concerns per patient or per nursing staff. Functional Status: Reports: Pain Controlled, Tolerating Diet, Ambulating, Urinating - Review of Systems General: Reports: No Symptoms HEENT: Reports: No Symptoms Pulmonary: Reports: No Symptoms Cardiovascular: Reports: No Symptoms Gastrointestinal: Reports: No Symptoms Genitourinary: Reports: No Symptoms Musculoskeletal: Reports: Joint Pain Skin: Reports: No Symptoms - Patient Data Vitals - Most Recent: Last Vital Signs Temp 36.1 C 09/19/21 08:30 Pulse 83 09/19/21 08:30 Resp 14 09/19/21 08:30 BP 124/67 09/19/21 08:30 Pulse Ox 100 09/19/21 08:30 Weight - Most Recent: 95.254 kg Med Orders - Current: Current Medications Discontinued Medications Acetaminophen (Acetaminophen 325 Mg Tab) 650 mg PO Q4H PRN PRN Reason: Pain (Mild 1-3) and fever Acetaminophen (Acetaminophen 325 Mg Tab) 650 mg PO Q6H PRN PRN Reason: Pain/Fever Last Admin: 09/19/21 01:09 Dose: 650 mg Documented by: Benzocaine/Menthol (Benzocaine/Menthol 20%-0.5% [place] 78 Gm Cannister) 0 gm TOP Q4H PRN PRN Reason: Perineal comfort measures Last Admin: 09/18/21 15:02 Dose: 1 spray Documented by: Carboprost Tromethamine (Carboprost Tromethamine 250 Mcg/1 Ml Amp) 250 mcg IM ASDIRECTED PRN PRN Reason: HEMORRHAGE Docusate Sodium (Docusate Sodium 100 Mg Cap) 100 mg PO BID PRN PRN Reason: Constipation Last Admin: 09/19/21 08:26 Dose: 100 mg Documented by: Epinephrine HCl (Epinephrine 1 Mg/Ml Sdv) Confirm Administered Dose 1 mg .ROUTE .STK-MED ONE Stop: 09/18/21 05:21 Last Admin: 09/18/21 06:03 Dose: Not Given Documented by: Epinephrine HCl (Epinephrine 1 Mg/Ml Sdv) 0.1 mg .XX .STK-MED ONE Stop: 09/18/21 06:21 Fentanyl (Fentanyl 100 Mcg/2 Ml Sdv) Confirm Administered Dose 100 mcg .ROUTE .STK-MED ONE Stop: 09/18/21 05:20 Last Admin: 09/18/21 06:03 Dose: Not Given Documented by: Fentanyl (Fentanyl 100 Mcg/2 Ml Sdv) 15 mcg ITHECAL .STK-MED ONE Stop: 09/18/21 06:21 Lactated Ringer's (Ringers, Lactated) 1,000 mls @ 999 mls/hr IV BOLUS ONE Stop: 09/18/21 05:50 Last Admin: 09/18/21 04:55 Dose: 999 mls/hr Documented by: Lactated Ringer's (Ringers, Lactated) 1,000 mls @ 125 mls/hr IV ASDIRECTED GEORGE Last Admin: 09/18/21 05:34 Dose: 125 mls/hr Documented by: Tranexamic Acid 1,000 mg/ (Sodium Chloride) 110 mls @ 660 mls/hr IV ONETIME PRN PRN Reason: Bleeding Oxytocin/Sodium Chloride (Pitocin In Ns 30 Unit/500 Ml) 30 unit in 500 mls @ 2 mls/hr IV TITRATE GEORGE; Protocol Last Titration: 09/18/21 13:11 Dose: Infused Documented by: Ibuprofen (Ibuprofen 800 Mg Tab) 800 mg PO Q8H PRN PRN Reason: Cramping Last Admin: 09/19/21 07:12 Dose: 800 mg Documented by: Lidocaine HCl (Lidocaine 1% 30 Ml Sdv) 30 ml INJECT ASDIRECTED PRN PRN Reason: Perineal Repair Methylergonovine Maleate (Methylergonovine 0.2 Mg/1 Ml Amp) 0.2 mg IM ASDIRECTED PRN PRN Reason: Hemorrhage Misoprostol (Misoprostol 400 Mcg (4 X 100 Mcg Tab)) 800 mcg RECTAL ASDIRECTED PRN PRN Reason: Hemorrhage Ondansetron HCl (Ondansetron 4 Mg/2 Ml Sdv) 4 mg IVPUSH Q4H PRN PRN Reason: Nausea/Vomiting Last Admin: 09/18/21 06:25 Dose: 4 mg Documented by: Oxytocin (Oxytocin 10 Units/1 Ml Sdv) 10 unit IM ONETIME PRN PRN Reason: Bleeding Prenat Multivit/[place]/Iron/Folic Ac ( Multivitamin With Calcium/Folic Acid/Iron Tab) 1 each PO DAILY GEORGE Last Admin: 09/19/21 08:26 Dose: 1 each Documented by: Simethicone (Simethicone 80 Mg Tab.Chew) 80 mg PO Q4H PRN PRN Reason: Gas Sodium Chloride (Sodium Chloride 0.9% 10 Ml Syringe) 10 ml FLUSH ASDIRECTED PRN PRN Reason: Keep Vein Open Sufentanil Citrate (Sufentanil 50 Mcg/1 Ml Amp) Confirm Administered Dose 50 mcg .ROUTE .STK-MED ONE Stop: 09/18/21 05:21 Last Admin: 09/18/21 06:03 Dose: Not Given Documented by: Sufentanil Citrate (Sufentanil 50 Mcg/1 Ml Amp) 10 mcg ITHECAL .STK-MED ONE Stop: 09/18/21 06:21 Witch Tori (Witch Tori Medicated Pads 100/Jar) 1 pad TOP ASDIRECTED PRN PRN Reason: Pain Last Admin: 09/18/21 19:14 Dose: 1 pad Documented by: - Exam General: Reports: Alert, Oriented Lungs: Reports: Clear to Auscultation, Normal Respiratory Effort Cardiovascular: Reports: Regular Rate, Regular Rhythm, No Murmurs Extremities: Normal Inspection, Pedal Edema (trace bilaterally) Skin: Reports: Warm, Dry, Intact Neurological: Reports: No New Focal Deficit
== END 2021-09-19 14:00 | disposition home or self-care (01) | DRG 566 ==
LOC: DL.OBCHECK 03:39 → DL.OB 04:37 → OBSVTOIN 10:28
PROVIDERS: ADMIT Family Medicine; ATTEND Family Medicine
DX: O99.013 Anemia complicating pregnancy, third trimester (principal); D64.9 Anemia, unspecified; O99.213 Obesity complicating pregnancy, third trimester; E66.9 Obesity, unspecified; Z3A.39 39 weeks gestation of pregnancy
CPT/HCPCS: 01967; 36415; 59409; 85027; A9270-GY; J0171; J2405; J2590; J3010; J7120